=== PATIENT | male | born 1960 | race African-American/Black ===

== ENCOUNTER 2018-10-02 17:19 | Observation (INO) ==
[2018-10-02] MEDS ORDERED: ONDANSETRON 4 MG/2 ML VIAL IV STA (17:42)
[2018-10-02] MEDS ORDERED: PANTOPRAZOLE 40 MG VIAL IV STA (17:42)
[2018-10-02] MEDS ORDERED: SODIUM CHLORIDE 0.9% 500 ML IV STA (17:42)
[2018-10-02 18:11] LABS: Basophils # 0.1 10*3/uL (0.0-0.2); Basophils % 0.6 % (0.0-0.8); Eosinophils # 0.2 10*3/uL (0.0-0.87); Eosinophils % 1.9 % (0.00-10.9); Hematocrit 27.4 VOL% (42.0-52.0); Hemoglobin 8.8 GM/DL (14.0-18.0); Immature Granulocytes % 0.3 %; Immature Granulocytes Absolute 0.03 #; Lymphocytes # 2.6 10*3/uL (1.4-4.0); Lymphocytes % 24.8 % (21.2-54.2); Mean Corpuscular HGB Conc 32.1 GM/DL (32-36); Mean Corpuscular Hemoglobin 30 PG (27-34); Mean Corpuscular Volume 94.5 FL (87-102); Mean Platelet Volume 12.8 FL (9.6-12.0); Monocytes # 0.6 10*3/uL (0.11-0.8); Monocytes % 5.5 % (1.7-12.7); Neutrophils # 7.1 10*3/uL (1.4-7.4); Neutrophils % 66.9 % (38.7-73.9); Platelet Count 174 T/CUMM (130-400); White Blood Count 10.7 T/CUMM (4-12)
[2018-10-02 18:24] LABS: INR 0.9; PT Patient Result 10.3 SECS
[2018-10-02 18:29] LABS: Alanine Aminotransferase 27 U/L (16-61); Albumin 3.5 G/DL (3.4-5.0); Alkaline Phosphatase 55 U/L (45-117); Aspartate Amino Transferase 21 U/L (0-37); Bilirubin,Total < 0.39 MG/DL (0.2-1.0); Blood Urea Nitrogen 45 MG/DL (7-18); Calcium 8.9 MG/DL (8.5-10.1); Glucose 230 MG/DL (74-106); Potassium 3.8 MMOL/L (3.5-5.1); Sodium 136 MMOL/L (136-145); Total Protein 7.1 G/DL (6.4-8.3)
[2018-10-02] MEDS ORDERED: ONDANSETRON 4 MG/2 ML VIAL IV PRN (18:49)
[2018-10-02] MEDS ORDERED: ACETAMINOPHEN 325 MG TABLET PO PRN (18:49)
[2018-10-02] MEDS ORDERED: SODIUM CHLORIDE 0.9% 1,000 ML IV PRN (18:53)
[2018-10-02] MEDS ORDERED: DEXTROSE 50% 25 GM/50 ML VIAL IV PRN (18:54)
[2018-10-02] MEDS ORDERED: GLUCAGON 1 MG VIAL IM PRN (18:54)
[2018-10-02] MEDS ORDERED: LORazepam 2 MG/1 ML VIAL IV PRN (22:08)
[2018-10-02] MEDS: INSULIN REGULAR 100 UNIT/ML SUBCUT SCH (22:25)
[2018-10-02] MEDS: FAMOTIDINE 20 MG TABLET PO SCH (22:25)
[2018-10-02] MEDS: CARVEDILOL 12.5 MG TABLET PO SCH (22:25)
[2018-10-02] MEDS: SIMVASTATIN 10 MG TABLET PO SCH (22:25)
[2018-10-03 05:52] LABS: Alanine Aminotransferase 24 U/L (16-61); Albumin 3.1 G/DL (3.4-5.0); Alkaline Phosphatase 44 U/L (45-117); Aspartate Amino Transferase 16 U/L (0-37); Bilirubin,Total < 0.39 MG/DL (0.2-1.0); Blood Urea Nitrogen 30 MG/DL (7-18); Calcium 8.2 MG/DL (8.5-10.1); Glucose 71 MG/DL (74-106); Osmolality,Calculated 282.4 MOS/KG (273-304); Potassium 3.2 MMOL/L (3.5-5.1); Sodium 140 MMOL/L (136-145); Total Protein 6.3 G/DL (6.4-8.3)
[2018-10-03] MEDS ORDERED: POTASSIUM CHLORIDE 20 MEQ TABLET PO PRN (07:15)
[2018-10-03] MEDS: INSULIN REGULAR 100 UNIT/ML SUBCUT SCH ×4 (07:30→21:50)
[2018-10-03 10:00] LABS: Hematocrit 24.4 VOL% (42.0-52.0); Hemoglobin 7.6 GM/DL (14.0-18.0)
[2018-10-03] MEDS: FAMOTIDINE 20 MG TABLET PO SCH (10:22)
[2018-10-03] MEDS: CARVEDILOL 12.5 MG TABLET PO SCH ×2 (10:23→21:50)
[2018-10-03] MEDS: FOLIC ACID 1 MG TABLET PO SCH (10:23)
[2018-10-03] MEDS: LISINOPRIL/HCTZ 20-12.5 MG TABLET PO SCH (10:23)
[2018-10-03] MEDS: MULTIVITAMIN (CENTRUM) TABLET PO SCH (10:23)
[2018-10-03] MEDS: PANTOPRAZOLE 40 MG VIAL IV SCH ×2 (10:23→21:50)
[2018-10-03] MEDS: THIAMINE 100 MG TABLET PO SCH (10:23)
[2018-10-03] MEDS ORDERED: SODIUM CHLORIDE 0.9% 1,000 ML IV PRN ×2 (13:53→15:40)
[2018-10-03 15:53] LABS: Hematocrit 25.9 VOL% (42.0-52.0)
[2018-10-03 21:48] LABS: Hematocrit 25.6 VOL% (42.0-52.0); Hemoglobin 7.9 GM/DL (14.0-18.0)
[2018-10-03] MEDS: SIMVASTATIN 10 MG TABLET PO SCH (21:50)
[2018-10-04 05:13] LABS: Basophils # 0.1 10*3/uL (0.0-0.2); Basophils % 1.1 % (0.0-0.8); Eosinophils # 0.3 10*3/uL (0.0-0.87); Eosinophils % 4.4 % (0.00-10.9); Hematocrit 32.2 VOL% (42.0-52.0); Immature Granulocytes % 0.3 %; Immature Granulocytes Absolute 0.02 #; Lymphocytes # 2.5 10*3/uL (1.4-4.0); Lymphocytes % 32.8 % (21.2-54.2); Mean Corpuscular HGB Conc 31.1 GM/DL (32-36); Mean Corpuscular Hemoglobin 29 PG (27-34); Mean Platelet Volume 12.4 FL (9.6-12.0); Monocytes # 0.6 10*3/uL (0.11-0.8); Monocytes % 8.1 % (1.7-12.7); Neutrophils % 53.3 % (38.7-73.9); Platelet Count 146 T/CUMM (130-400); White Blood Count 7.5 T/CUMM (4-12)
[2018-10-04 05:32] LABS: Calcium 8.6 MG/DL (8.5-10.1); Osmolality,Calculated 278.4 MOS/KG (273-304); Potassium 3.3 MMOL/L (3.5-5.1)
[2018-10-04] MEDS: INSULIN REGULAR 100 UNIT/ML SUBCUT SCH ×3 (07:30→12:39)
[2018-10-04] MEDS ORDERED: LIDOCAINE 100 MG/5 ML SYRINGE ONE (09:00)
[2018-10-04] MEDS ORDERED: PROPOFOL 200 MG/20 ML VIAL IV ONE (09:00)
[2018-10-04] MEDS: THIAMINE 100 MG TABLET PO SCH (10:07)
[2018-10-04] MEDS: MULTIVITAMIN (CENTRUM) TABLET PO SCH (10:08)
[2018-10-04] MEDS: FOLIC ACID 1 MG TABLET PO SCH (10:08)
[2018-10-04] MEDS: CARVEDILOL 12.5 MG TABLET PO SCH (10:08)
[2018-10-04] MEDS: LISINOPRIL/HCTZ 20-12.5 MG TABLET PO SCH (10:08)
[2018-10-04] MEDS ORDERED: POTASSIUM CHLORIDE 20 MEQ TABLET PO ONE (14:00)
[2018-10-04 15:38] VITALS: BP 132/62
[2018-10-04] MEDS ORDERED: PANTOPRAZOLE 40 MG TABLET PO SCH (19:00)
== END 2018-10-04 17:26 | disposition home or self-care (01) ==
LOC: N.ED 17:19 → INTOOBSV 18:49 → N.EDINP 18:49 → N.5E 19:26
PROVIDERS: ADMIT Emergency Medicine; ATTEND Emergency Medicine